=== PATIENT | female | born 2000 | race Native Hawaiian/Other Pacific Islander ===

== ENCOUNTER 2018-10-18 19:51 | Emergency (ER) | payer BC ==
[2018-10-18 20:24] VITALS: BP 105/74; PULSE 92; RESP 18; TEMP 97.6; O2SAT 100
[2018-10-18] MEDS ORDERED: Lidocaine 1% Inj (20ml) ONE (20:31)
--- NOTE | 2018-10-18 21:31 | ED PDOC ---
HPI: Wound Care - HPI Time Seen by Provider: 10/18/18 20:25 Chief Complaint (Nursing): Abnormal Skin Integrity Chief Complaint (Provider): Abnormal Skin Integrity History Per: Patient Exam Limitations: no limitations Onset/Duration Of Symptoms: Mins (just prior to arrival) Current Symptoms Are (Timing): Still Present Location Of Injury: Left: Head Severity: Moderate Additional Complaint(s): 18 year old female with no past medical history presents to the ED for an evaluation of a head laceration that occurred just prior to arrival. Patient reports that she tripped and fell and struck the left side of her face against the corner of a chair, sustaining a laceration. Patient denies having loss of consciousness, nausea, vomiting, and headaches. Tetanus is up to date. PMD: In [place] Past Medical History Reviewed: Historical Data, Nursing Documentation, Vital Signs Vital Signs: Last Vital Signs Temp 97.6 F 10/18/18 20:22 Pulse 92 H 10/18/18 20:22 Resp 18 10/18/18 20:22 BP 105/74 10/18/18 20:22 Pulse Ox 100 10/18/18 20:22 EMILIA Report Viewed: Yes - Medical History PMH: No Chronic Diseases - Family History Family History: States: No Known Family Hx - Social History Current smoker - smoking cessation education provided: No Alcohol: Occasional Drugs: Denies - Immunization History Hx Tetanus Toxoid Vaccination: Yes - Allergies Allergies/Adverse Reactions: Allergies Allergy/AdvReac Type Severity Reaction Status Date / Time No Known Allergies Allergy Verified 10/18/18 20:22 Review of Systems ROS Statement: Except As Marked, All Systems Reviewed And Found Negative Gastrointestinal: Negative for: Nausea, Vomiting Neurological: Positive for: Other (head injury: laceration to left side of forehead). Negative for: Headache Physical Exam - Reviewed Nursing Documentation Reviewed: Yes Vital Signs Reviewed: Yes - Physical Exam Appears: Positive for: Well, Non-toxic, No Acute Distress Head Exam: Positive for: NORMOCEPHALIC. Negative for: ATRAUMATIC (1 inch linear vertical laceration to left side of the forehead extending to the left upper eyelid) Skin: Positive for: Normal Color, Warm, Dry Eye Exam: Positive for: Normal appearance, EOMI, PERRL Neurologic/Psych: Positive for: Alert, Oriented (3x), Gait (steady and unassisted) - ECG O2 Sat by Pulse Oximetry: 100 (RA) Pulse Ox Interpretation: Normal Procedure: Wound Repair - Time Performed Time Performed: 21:30 - Time Out Time Out: Side verified, Site verified, Patient ID confirmed, Sterile procedures obs. - Consent Obtained Consent obtained: Emergent consent implied - Performed by Performed by: Mid-level Provider (Syd PATEL) - Indications Indication(s):: Laceration - Location Location:: Left Dimensions Length cm: 5 Depth:: Epidermis - Anesthetic Technique Anesthetic Technique: Regional block Local/Regional Anesthetic:: Lidocaine 1% - Debris Debris:: None - Irrigated Irrigated with ml of normal saline: 100 - Complexity Complexity:: Simple (one layer) - Wound repair method Sutures:: # (5-0), Size, Type (prolene), Technique (simple interrupted) - Patient tolerated procedure Patient Tolerated Procedure:: Well Medical Decision Making Medical Decision Makin:25 Initial impression: 18 year old female with a head laceration Initial plan: * laceration repair * reevaluation Scribe Attestation: Documented byJudy Gallegos, acting as a scribe for Jimbo Harmon Provider Scribe Attestation: All medical record entries made by the Scribe were at my direction and personally dictated by me. I have reviewed the chart and agree that the record accurately reflects my personal performance of the history, physical exam, medical decision making, and the department course for this patient. I have also personally directed, reviewed, and agree with the discharge instructions and disposition. Disposition - Clinical Impression Clinical Impression: Head injury, Facial laceration - Patient ED Disposition Is Patient to be Admitted: No - Disposition Referrals: Moises Jin [Outside] Disposition: Routine/Home Disposition Time: 21:40 Condition: STABLE Additional Instructions: SUTURE REMOVAL IN 5-7 DAYS EVAN MORRISON, thank you for letting us take care of you today. Your provider was Jasson Pope MD and you were treated for HEAD LACERATION. The emergency medical care you received today was directed at your acute symptoms. If you were prescribed any medication, please fill it and take as directed. It may take several days for your symptoms to resolve. Return to the Emergency Department if your symptoms worsen, do not improve, or if you have any other problems. Please contact your doctor or call one of the physicians/clinics you have been referred to that are listed on the Patient Visit Information form that is included in your discharge packet. Bring any paperwork you were given at discharge with you along with any medications you are taking to your follow up visit. Our treatment cannot replace ongoing medical care by a primary care provider outside of the emergency department. Thank you for allowing the [facility] team to be part of your care today. If you had an X-Ray or CT scan: A Radiologist will review the ED reading if any change in treatment is needed we will contact you. If you had a blood, urine, or wound culture: It will take several days for the results, if any change in treatment is needed we will contact you. If you had an STI test: It will take 48 hours for the results. Please call after 1 week if you have not heard back. Instructions: Laceration Repair With Stitches (DC) Forms: [employer] (German)
[2018-10-18] MEDS ORDERED: Bacitracin 500 Units/gm Oint Foilpak UD ONE (21:36)
== END 2018-10-18 21:46 | disposition home or self-care (01) ==
LOC: H.ER 19:51
DX: S01.81XA Laceration without foreign body of other part of head, initial encounter (principal); W01.0XXA Fall on same level from slipping, tripping and stumbling without subsequent striking against object, initial encounter